=== PATIENT | female | born 1950 | race Caucasian/White ===

== ENCOUNTER 2022-08-25 22:38 | Observation (INO) | payer MEDICARE, SELFPAY ==
[2022-08-25 22:42] VITALS: BP 150/71; PULSE 60; RESP 26; TEMP 36.6; O2SAT 98; BMI 46.3
[2022-08-25 22:45] VITALS: PULSE 61; RESP 25; O2SAT 99
--- NOTE | 2022-08-25 22:50 | DI.RAD.S_ITS ---
PROCEDURE: XR CHEST 1V INDICATIONS: chest pain TECHNIQUE: One view of the chest was acquired. COMPARISON: [facility], CR, XR CHEST 1 VIEW, 07/05/2020, 20:11. FINDINGS: Surgical changes and devices: Left chest wall dual lead pacemaker is demonstrated. Postsurgical changes are also again noted within the mediastinum as well as a prosthetic aortic valve. Lungs and pleura: There is a small right pleural effusion with associated patchy right basilar opacities consistent with atelectasis or consolidation. No pneumothorax. Mediastinum: Mediastinal contours are unchanged. Heart size is enlarged. Bones and chest wall: No suspicious bony lesions. Overlying soft tissues appear unremarkable. IMPRESSION: 1. Small right pleural effusion with associated right basilar atelectasis or consolidation. Dictated by: Bill Redmond M.D. on 08/26/2022 at 1:38 Approved by: Bill Redmond M.D. on 08/26/2022 at 1:39
[2022-08-25 23:00] VITALS: PULSE 60; RESP 27; O2SAT 92
[2022-08-25 23:01] VITALS: BP 123/59; PULSE 60; RESP 26; O2SAT 93
[2022-08-25 23:21] LABS: Add Manual Diff / Slide Review NO; Basophils Absolute Auto 100 /uL (0-100); Basophils Percent Auto 0.9 % (0-2); Eosinophils Absolute Auto 200 /uL (0-450); Eosinophils Percent Auto 2.4 % (2-4); Hematocrit 33.5 % (36-46); Hemoglobin 10.9 g/dL (12.0-16.0); Lymphocytes Absolute Auto 1200 /uL (1100-4500); Lymphocytes Percent Auto 14.1 % (25-40); Mean Corpuscular HGB Conc 32.4 % (30-36); Mean Corpuscular Hemoglobin 25.8 PG (26-34); Mean Corpuscular Volume 79.8 fL (80-100); Monocytes Absolute Auto 1100 /uL (0-900); Monocytes Percent Auto 12.2 % (3-14); Neutrophils Absolute Auto 6200 /uL (1500-7000); Neutrophils Percent Auto 70.4 % (50-75); Platelet Count 160 X10^3/uL (150-400); Red Cell Distribution Width 16.8 % (11.6-14.8); White Blood Cell Count 8.9 X10^3/uL (4.5-11.0)
[2022-08-25 23:30] VITALS: PULSE 60; RESP 15; O2SAT 90
[2022-08-25 23:31] VITALS: BP 109/57; PULSE 60; RESP 17; O2SAT 90
--- NOTE | 2022-08-25 23:33 | ED_ITS ---
HPI - SOB/Dyspnea General Chief Complaint: Shortness of Breath/Dyspnea Stated Complaint: Shortness of breath Time Seen by Provider: 08/25/22 23:23 Source: patient and EMS Mode of arrival: EMS History of Present Illness HPI Narrative: Patient is a 71-year-old female history of congestive heart failure presenting today with increasing shortness of breath. She says has been going on for couple of months her doctor recently increased her Lasix from 20 mg to 40 mg but does not feel like it is helping. She denies fever chills or chest pain. Feels like she is more short of breath. EMS arrived she was placed on 4 L of oxygen her room air sat now is 91%. She states that today she was walking to the bathroom she was extremely short of breath when she fell and hit her head. She denies any loss of conscious. She was previously seen at [facility] on August 16 after a fall. Related Data Allergies Allergy/AdvReac Type Severity Reaction Status Date / Time No Known Drug Allergies Allergy Verified 08/25/22 22:41 Review of Systems Review of Systems Narrative: GENERAL: Denies chills, fatigue, malaise, fever, sweats, travel HEENT: Denies sinus pain, ear pain, sore throat, difficulty swallowing, neck pain RESPIRATORY: See HPI CARDIOVASCULAR: Denies chest pain, palpitations, orthopnea, edema GASTROINTESTINAL: Denies nausea, vomiting, abdominal pain, diarrhea, con stipation, melena. : Denies dysuria, frequency, incontinence, hematuria, urinary retention, flank pain. MUSCULOSKELETAL: Denies weakness, joint pain, or bony pain SKIN: No rash, no erythema, no pruritus NEUROLOGIC: Denies weakness, dizziness, headache, numbness, change in speech, confusion PSYCHIATRIC: No concerning psychosocial issues. 12 point review of systems is negative except for those stated above and HPI Patient History Medical History (Updated 08/26/22 @ 03:38 by DEBI Schmidt) Chronic kidney disease (CKD) stage G3b/A3, moderately decreased glomerular filtration rate (GFR) between 30-44 mL/min/1.73 square meter and albuminuria creatinine ratio greater than 300 mg/g Coronary artery disease Diabetes type 2, controlled Dyslipidemia Essential hypertension Surgical History (Updated 08/26/22 @ 03:38 by DEBI Schmidt) History of heart valve replacement Family History (Updated 08/26/22 @ 03:39 by DEBI Schmidt) Father Leukemia Mother Myocardial infarction Social History household members: other Smoking Status: Former smoker alcohol intake: current Smoking Status: Former smoker alcohol intake frequency: holidays/special occasions only Substance Use Type: does not use Exam Initial Vital Signs Initial Vital Signs: Vital Signs Temperature 97.9 F 08/25/22 22:42 Pulse Rate 60 08/25/22 22:42 Respiratory Rate 26 H 08/25/22 22:42 Blood Pressure 150/71 H 08/25/22 22:42 Pulse Oximetry 98 08/25/22 22:42 Oxygen Delivery Method 08/25/22 22:42 Oxygen Flow Rate 4 08/25/22 22:42 GENERAL: Alert pleasant 71-year-old male HEENT: Head atraumatic,EOMI, pupils reactive, face symmetric, [moist] mucous membranes CARDIOVASCULAR: Regular rate and rhythm without murmurs, rubs or gallops. RESPIRATORY: Slightly tachypneic no respiratory distress slightly coarse at bases ABDOMEN: Soft, nontender. Normoactive bowel sounds all 4 quadrants. No guarding or rebound. EXTREMITIES: Normal range of motion, no clubbing or edema. Neurovascularly intact NEUROLOGICAL: Alert and oriented x4.Normal gait and speech. SKIN: Warm, dry, no laceration, no petechiae, no rashes or lesions. Course Orders Ordered: ED Orders 08/25/22 22:50 XR chest 1V Stat EKG-12 Lead Stat 08/25/22 23:04 Complete Blood Count AUTO DIFF Stat Comprehensive Metabolic Panel Stat Covid-19 + FLU A/B + RSV - PCR Stat Lipase Stat Magnesium Stat NT-proBNP (BNP-Adult 18+) Stat Troponin & CK Cardiac Panel Stat 08/26/22 00:09 ETOH [Ethanol (ETOH)] Stat 08/26/22 00:15 CT head/brain wo con Stat Acetaminophen (Acetaminophen 325 Mg Tablet) 650 mg PO Q6H PRN PRN Reason: Fever/Mild Pain (1-3) Atorvastatin Calcium (Atorvastatin 20 Mg Tablet) 40 mg PO BEDTIME [facility] Citalopram Hydrobromide (Citalopram 10 Mg Tablet) 20 mg PO DAILY [facility] Dextrose (Dextrose 50 % In Water 25 Gm/50 Ml Syringe) 25 gm IV PRN PRN PRN Reason: Hypoglycemia Donepezil HCl (Donepezil 5 Mg Tablet) 5 mg PO BEDTIME [facility] Heparin Sodium (Porcine) (Heparin 5,000 Unit/Ml Vial) 5,000 unit SUBCUT BID [facility] Insulin Human Lispro (Insulin Lispro 100 Unit/Ml 3ml Vial) 0 unit SUBCUT ACHS [facility]; Protocol Losartan Potassium (Losartan 25 Mg Tablet) 25 mg PO DAILY [facility] Metoprolol Succinate (Metoprolol Er 25 Mg Tablet) 50 mg PO DAILY [facility] Naloxone HCl (Naloxone 0.4 Mg/Ml Vial) 0.2 mg IV Q2MIN PRN PRN Reason: Opiate Reversal Ondansetron HCl (Ondansetron 4 Mg/2 Ml Inj) 4 mg IV Q6HR PRN PRN Reason: Nausea And Vomiting Pregabalin (Pregabalin 50 Mg Capsule) 100 mg PO TID [facility] Sennosides (Sennosides 8.6 Mg Tablet) 8.6 mg PO BID [facility] Discontinued Medications Enoxaparin Sodium (Enoxaparin 40 Mg/0.4 Ml Syringe) 40 mg SUBCUT DAILY [facility] Furosemide (Furosemide 40 Mg/4 Ml Vial) 40 mg IV NOW ONE Stop: 08/25/22 23:34 Last Admin: 08/25/22 23:45 Dose: 40 mg Documented By: STEVEN Vital Signs Vital signs: Vital Signs - 8 hr 08/25/22 22:42 08/25/22 22:45 08/25/22 23:00 Temperature 97.9 F Pulse Rate 60 61 60 Respiratory Rate 26 H 25 H 27 H Blood Pressure 150/71 H Pulse Oximetry 98 99 92 Oxygen Delivery Method Nasal Cannula Oxygen Flow Rate 4 08/25/22 23:01 08/25/22 23:01 08/25/22 23:30 Temperature Pulse Rate 60 60 Respiratory Rate 26 H 15 Blood Pressure 123/59 L Pulse Oximetry 93 90 L Oxygen Delivery Method Oxygen Flow Rate 08/25/22 23:31 08/25/22 23:31 08/26/22 00:00 Temperature Pulse Rate 60 61 Respiratory Rate 17 18 Blood Pressure 109/57 L Pulse Oximetry 90 L 96 Oxygen Delivery Method Oxygen Flow Rate 08/26/22 00:01 08/26/22 00:01 08/26/22 00:30 Temperature Pulse Rate 60 64 Respiratory Rate 19 33 H Blood Pressure 123/58 L Pulse Oximetry 96 95 Oxygen Delivery Method Oxygen Flow Rate 2 08/26/22 01:00 11/08/22 01:30 Temperature Pulse Rate 60 60 Respiratory Rate 20 16 Blood Pressure Pulse Oximetry 97 98 Oxygen Delivery Method Oxygen Flow Rate 2 2 MDM - SOB/Dyspnea Lab Data Result diagrams: 08/25/22 23:04 08/25/22 23:04 Labs: Lab Results 08/25/22 08/25/22 08/25/22 Range/Units 23:04 23:04 23:04 WBC 8.9 (4.5-11.0) X10^3/uL RBC 4.20 (4.0-5.2) X10^6/uL Hgb 10.9 L (12.0-16.0) g/dL Hct 33.5 L (36-46) % MCV 79.8 L (80-100) fL MCH 25.8 L (26-34) PG MCHC 32.4 (30-36) % RDW 16.8 H (11.6-14.8) % Plt Count 160 (150-400) X10^3/uL Neut % (Auto) 70.4 (50-75) % Lymph % (Auto) 14.1 L (25-40) % [place] % (Auto) 12.2 (3-14) % Eos % (Auto) 2.4 (2-4) % Baso % (Auto) 0.9 (0-2) % Neut # (Auto) 6200 (7468-6594) /uL Lymph # (Auto) 1200 (4898-3342) /uL [place] # (Auto) 1100 H (0-900) /uL Eos # (Auto) 200 (0-450) /uL Baso # (Auto) 100 (0-100) /uL Sodium 136 L (137-145) mmol/L Potassium 4.4 (3.4-5.1) mmol/L Chloride 103 (98-107) mmol/L Carbon Dioxide 22 (22-32) mmol/L BUN 39 H (7-17) mg/dL Creatinine 1.73 H (0.52-1.04) mg/dL Estimated GFR 31 L (>60) mL/min BUN/Creatinine Ratio 22.5 H (6-22) Glucose 95 (80-110) mg/dL Calcium 7.6 L (8.4-10.2) mg/dL Magnesium 1.6 (1.6-2.3) mg/dL Total Bilirubin 0.5 (0.2-1.3) mg/dL AST 19 (14-36) IU/L ALT 20 (<35) IU/L Alkaline Phosphatase 118 (38-126) U/L Total Creatine Kinase 75 (30-135) U/L CK-MB (CK-2) TNP CK-MB (CK-2) Rel Index TNP Troponin I 0.030 (0.01-0.034) ng/mL NT-Pro-B Natriuret Pep 6740 H (<125) pg/mL Total Protein 6.4 (6.3-8.2) g/dL Albumin 3.7 (3.5-5.0) g/dL Globulin 2.7 (1.7-4.1) g/dL Albumin/Globulin Ratio 1.4 (1.0-2.8) Lipase 295 (23-300) U/L Ethyl Alcohol ( - 10) mg/dL SARS-CoV-2 (PCR) Negative (Negative) Influenza A (RT-PCR) Flu a negative (NEGATIVE) Influenza B (RT-PCR) Flu b negative (NEGATIVE) RSV (PCR) Negative (Negative) 08/25/22 Range/Units 23:04 WBC (4.5-11.0) X10^3/uL RBC (4.0-5.2) X10^6/uL Hgb (12.0-16.0) g/dL Hct (36-46) % MCV (80-100) fL MCH (26-34) PG MCHC (30-36) % RDW (11.6-14.8) % Plt Count (150-400) X10^3/uL Neut % (Auto) (50-75) % Lymph % (Auto) (25-40) % [place] % (Auto) (3-14) % Eos % (Auto) (2-4) % Baso % (Auto) (0-2) % Neut # (Auto) (1805-3233) /uL Lymph # (Auto) (6383-9794) /uL [place] # (Auto) (0-900) /uL Eos # (Auto) (0-450) /uL Baso # (Auto) (0-100) /uL Sodium (137-145) mmol/L Potassium (3.4-5.1) mmol/L Chloride (98-107) mmol/L Carbon Dioxide (22-32) mmol/L BUN (7-17) mg/dL Creatinine (0.52-1.04) mg/dL Estimated GFR (>60) mL/min BUN/Creatinine Ratio (6-22) Glucose (80-110) mg/dL Calcium (8.4-10.2) mg/dL Magnesium (1.6-2.3) mg/dL Total Bilirubin (0.2-1.3) mg/dL AST (14-36) IU/L ALT (<35) IU/L Alkaline Phosphatase (38-126) U/L Total Creatine Kinase (30-135) U/L CK-MB (CK-2) CK-MB (CK-2) Rel Index Troponin I (0.01-0.034) ng/mL NT-Pro-B Natriuret Pep (<125) pg/mL Total Protein (6.3-8.2) g/dL Albumin (3.5-5.0) g/dL Globulin (1.7-4.1) g/dL Albumin/Globulin Ratio (1.0-2.8) Lipase (23-300) U/L Ethyl Alcohol < 10 ( - 10) mg/dL SARS-CoV-2 (PCR) (Negative) Influenza A (RT-PCR) (NEGATIVE) Influenza B (RT-PCR) (NEGATIVE) RSV (PCR) (Negative) Imaging Data Chest x-ray: Radiologist's Impression: PROCEDURE:? XR CHEST 1V ? INDICATIONS:? chest pain ? TECHNIQUE:? One view of the chest was acquired.? ? COMPARISON:? [facility], , XR CHEST 1 VIEW, 07/05/2020, 20:11. ? FINDINGS:? ? Surgical changes and devices:? Left chest wall dual lead pacemaker is demonstrated.? Postsurgical changes are also again noted within the mediastinum as well as a prosthetic aortic valve. ? Lungs and pleura:? There is a small right pleural effusion with associated patchy right basilar opacities consistent with atelectasis or consolidation.? No pneumothorax. ? Mediastinum:? Mediastinal contours are unchanged.? Heart size is enlarged. ? Bones and chest wall:? No suspicious bony lesions.? Overlying soft tissues appear unremarkable.? ? IMPRESSION:? ? 1. Small right pleural effusion with associated right basilar atelectasis or consolidation.? ? ? Dictated by: Bill Redmond M.D. on 08/26/2022 at 1:38 ? ? Approved by: Bill Redmond M.D. on 08/26/2022 at 1:39 ? CT scan - head: Radiologist's Impression: Signed Patient: Penny Minor MR#: [id number] : 1950 Acct:[id number] Age/Sex: 71 / F Date of Service: 08/26/22 Loc: ED Accession Number: [id number] ?? Procedure: CT head/brain wo con Ordering Provider: Shawna Quinonez D.O. PROCEDURE:? CT HEAD/BRAIN WO CON ? INDICATIONS:? fall etoh ? TECHNIQUE:? Noncontrast 4.5 mm thick angled axial sections acquired from the foramen magnum to the vertex, with coronal and sagittal reformats.? For radiation dose reduction, the following was used:? automated exposure control, adjustment of mA and/or kV according to patient size.? ? COMPARISON:? None. ? FINDINGS:? Image quality:? There is mild motion artifact.? ? CSF spaces:? Basal cisterns are patent.? No extra-axial fluid collections.? There is mild cerebral volume loss, with resultant ventricular and sulcal prominence.? ? Brain:? No intracranial hemorrhage, mass, or mass effect.? There are subcortical, periventricular and deep white matter hypodensities consistent with mild to moderate chronic small vessel ischemic changes.? The spencer-white matter junction appears preserved. ?There is intracranial internal carotid artery atherosclerosis.? ? Skull and face:? Calvarium and visualized facial bones appear intact, without suspicious lesions.? ? Sinuses:? Visualized sinuses and mastoids are clear.? ? IMPRESSION:? ? 1. No acute intracranial abnormality. ? 2. Mild to moderate chronic white matter small vessel ischemic changes and mild cerebral volume loss. ? ? Dictated by: Bill Redmond M.D. on 08/26/2022 at 1:28 ? ? Approved by: Bill Redmond M.D. on 08/26/2022 at 1:29 ? ECG Data Interpretation: Paced rhythm rate [address] changes low voltage no priors to compare MDM Narrative Medical decision making narrative: Patient has history of congestive heart failure on Lasix her dose was increased from 20-40 she is not sure when. She continues to be tachypneic short of breath. She does require 1-2 L of oxygen in the ED. Her BNP is elevated at 6000 his symptoms are consistent with congestive heart failure no sign of infection at this time. Coronary artery disease pulmonary embolism are also considered but at this time symptoms are most consistent with congestive heart failure exacerbation. Although she appears comfortable she was given 40 of Lasix in the ED she did urinate with Records from would be have been received and reviewed he fell on August 16 and then she fell again today head CT is negative. Kely Carballo accepts patient Discharge Plan Departure Patient Disposition: Admitted as Observation Clinical Impression: Congestive heart failure Admit Date/Time: 08/26/22 01:51 Admit Provider: Jing Carballo
[2022-08-25 23:35] LABS: Alanine Aminotransferase 20 IU/L (<35); Albumin 3.7 g/dL (3.5-5.0); Albumin Globulin Ratio 1.4 (1.0-2.8); Alkaline Phosphatase 118 U/L (38-126); Aspartate Aminotransferase 19 IU/L (14-36); BUN Creatinine Ratio 22.5 (6-22); Bilirubin Total 0.5 mg/dL (0.2-1.3); Blood Urea Nitrogen 39 mg/dL (7-17); Calcium 7.6 mg/dL (8.4-10.2); Carbon Dioxide 22 mmol/L (22-32); Chloride 103 mmol/L (98-107); Creatine Kinase 75 U/L (30-135); Estimated Glomerular Filt Rate 31 mL/min (>60); Globulin 2.7 g/dL (1.7-4.1); Glucose 95 mg/dL (80-110); HEMOLYSIS < 15 (0-50); Lipase 295 U/L (23-300); Magnesium 1.6 mg/dL (1.6-2.3); Potassium 4.4 mmol/L (3.4-5.1); Sodium 136 mmol/L (137-145); Total Protein 6.4 g/dL (6.3-8.2)
[2022-08-25] MEDS: FUROSEMIDE 40 MG/4 ML VIAL IV (23:45)
[2022-08-25 23:46] LABS: NT-proBNP (BNP-Adult 18+) 6740 pg/mL (<125)
[2022-08-26] VITALS (16 sets, daily range): BP systolic 102–132; BP diastolic 48–75; PULSE 59–94; RESP 13–33; TEMP 36.2–36.5; O2SAT 92–100; BMI 45.2
--- NOTE | 2022-08-26 00:15 | DI.CT.S_ITS ---
PROCEDURE: CT HEAD/BRAIN WO CON INDICATIONS: fall etoh TECHNIQUE: Noncontrast 4.5 mm thick angled axial sections acquired from the foramen magnum to the vertex, with coronal and sagittal reformats. For radiation dose reduction, the following was used: automated exposure control, adjustment of mA and/or kV according to patient size. COMPARISON: None. FINDINGS: Image quality: There is mild motion artifact. CSF spaces: Basal cisterns are patent. No extra-axial fluid collections. There is mild cerebral volume loss, with resultant ventricular and sulcal prominence. Brain: No intracranial hemorrhage, mass, or mass effect. There are subcortical, periventricular and deep white matter hypodensities consistent with mild to moderate chronic small vessel ischemic changes. The spencer-white matter junction appears preserved. There is intracranial internal carotid artery atherosclerosis. Skull and face: Calvarium and visualized facial bones appear intact, without suspicious lesions. Sinuses: Visualized sinuses and mastoids are clear. IMPRESSION: 1. No acute intracranial abnormality. 2. Mild to moderate chronic white matter small vessel ischemic changes and mild cerebral volume loss. Dictated by: Bill Redmond M.D. on 08/26/2022 at 1:28 Approved by: Bill Redmond M.D. on 08/26/2022 at 1:29
[2022-08-26 00:24] LABS: Ethanol (ETOH) < 10 mg/dL
[2022-08-26 00:33] LABS: Influenza A - CEPHEID Flu A NEGATIVE (NEGATIVE); Influenza B - CEPHEID Flu B NEGATIVE (NEGATIVE); Respiratory Syncytial Virus Negative (Negative)
[2022-08-26 00:36] LABS: COVID-19 CEPHEID 4-PLEX PCR Negative (Negative)
--- NOTE | 2022-08-26 02:04 | DI.ECHO.S_ITS ---
[facility] +---------+ : : [address] [place] : : : : [id number] : : : : Phone: [phone] Echocardiogram Report + + :Name: MEHREEN JONES Study Date: 08/26/2022 Height: 64 in : :[facility] ReadingLocation: Weight: 270 lb : : Gender: Female BSA: 2.2 m2 : :: 1950 Age: 71 yrs BP: 112/61 mmHg: :Reason For Study: CHF EXACERBATION : :Ordering Physician: Reggie YADAVformed By: Martha Staton : :Referring: RUBY YADAV : + + Interpretation Summary The left ventricle is normal in size. Left ventricular systolic function is borderline reduced. Left ventricular ejection fraction is estimated to be 50 +/- 5%. Left ventricular systolic function has significantly improved compared to the previous exam. The interventricular septum is flattened, consistent with a right ventricular pressure/volume condition. The right ventricle is moderately dilated. Right ventricular systolic function is moderately reduced. The right ventricular systolic pressure is estimated to be at least 59 mmHg based on an estimated right atrial pressure of 8 mm Hg. The left atrium is moderately dilated. The right atrium is mildly dilated. There is moderate to severe mitral annular calcification. There is mild to moderate mitral regurgitation. There is moderate tricuspid regurgitation. There is moderate pulmonic regurgitation. The aortic arch is moderate-severely enlarged. Procedure: A two-dimensional transthoracic echocardiogram with color flow and Doppler was performed. The study quality was technically adequate. Comparison is made with the echocardiogram of 07/06/2020. The patient had occasional PVCs during the exam. The patient was in sinus rhythm with heart rates between 60-65 bpm during the exam. Left Ventricle: The left ventricle is normal in size. There is mild concentric left ventricular hypertrophy. Left ventricular systolic function is borderline reduced. Left ventricular ejection fraction is estimated to be 50 +/- 5%. Left ventricular systolic function has significantly improved compared to the previous exam. The interventricular septum is flattened, consistent with a right ventricular pressure/volume condition. There is borderline global hypokinesis of the left ventricle. Diastolic parameters suggest probable elevated filling pressures. Right Ventricle: The right ventricle is moderately dilated. Right ventricular systolic function is moderately reduced. Atria: The left atrium is moderately dilated. The right atrium is mildly dilated. There is no Doppler evidence for an interatrial shunt. Mitral Valve: There is moderate to severe mitral annular calcification. The mitral valve leaflets appear mildly thickened, but open well. The mitral valve mean gradient is 3.2 mmHg. There is mild to moderate mitral regurgitation. Aortic Valve: The aortic valve is trileaflet. The aortic valve is mildly calcified. There is mild aortic valve sclerosis. There is no aortic valve stenosis. No aortic regurgitation is present. Tricuspid Valve: The tricuspid valve leaflets are thin and pliable. There is moderate tricuspid regurgitation. The right ventricular systolic pressure is estimated to be at least 59 mmHg based on an estimated right atrial pressure of 8 mm Hg. Pulmonic Valve: The pulmonic valve is not well seen, but is grossly normal. There is moderate pulmonic regurgitation. Great Vessels: The aortic root is normal size. The dimensions of the ascending aorta are normal. The aortic arch is moderate-severely enlarged. The IVC is dilated (diameter is greater than 2.1 cm) yet it collapses greater than 50% with a sniff. This suggests a right atrial pressure of 8 mm Hg. Pericardium/ Pleura There is no pericardial effusion. There is no pleural effusion. MMode/2D Measurements & Calculations LVIDd: 4.6 cm LVOT diam: 2.0 cm LVIDs: 3.3 cm Ao root diam: 2.7 cm FS: 28.6 % asc Aorta Diam: 3.4 cm IVSd: 1.3 cm Ao Arch Diam (Prox Trans): 4.3 cm LVPWd: 1.1 cm LV christianson. diameter/BSA (cm/m^2): 2.1 LV sys. diameter/BSA (cm/m^2): 1.5 LA A2 area: 31.8 cm2 RA long axis: 6.1 cm LA A4 area: 22.2 cm2 RA area: 23.3 cm2 LA length (vol): 6.4 cm RA vol: 75.8 ml LA vol: 94.2 ml RA : 34.1 ml/m2 LA vol index: 42.4 ml/m2 IVC diam: 2.3 cm RVD1 (basal): 5.4 cm RVD2 (mid): 4.5 cm TAPSE: 1.3 cm Doppler Measurements & Calculations Ao V2 max: 168.7 cm/sec LVOT Max Thaddeus: 106.9 cm/sec Ao V2 mean: 114.8 cm/sec LV V1 max P.6 mmHg Ao max P.3 mmHg LV V1 VTI: 19.8 cm Ao mean P.5 mmHg LEANN(I,D): 1.9 cm2 Ao V2 VTI: 33.0 cm LEANN(V,D): 2.0 cm2 sev ratio: 0.60 LEANN indexed to BSA (cm^2/m^2): 0.85 MV E max thaddeus: 161.2 cm/sec TR max thaddeus: 356.5 cm/sec MV A max thaddeus: 44.1 cm/sec TR max P.9 mmHg MV E/A: 3.7 PA V2 max: 127.0 cm/sec Med Peak E' Thaddeus: 5.4 cm/sec PA V2 mean: 80.8 cm/sec E/E' med: 29.6 PA mean P.0 mmHg Lat Peak E' Thaddeus: 7.7 cm/sec PA pr(Accel): 29.3 mmHg E/E' lat: 20.8 E/e' average: 25.2 MV dec time: 0.19 sec MVA(VTI): 1.5 cm2 MV V2 mean: 76.8 cm/sec SV(LVOT): 62.7 ml MV mean P.2 mmHg MV V2 VTI: 41.8 cm Reading Physician:02:34 PM
--- NOTE | 2022-08-26 03:04 | P.HP_ITS ---
History of Present Illness History of Present Illness Date Patient Seen: 08/26/22 Time Patient Seen: 03:30 Date of Onset of Symptoms: 08/26/22 Chief complaint: Shortness of breath Narrative: Penny Minor is a 71-year-old female resident of [facility] with a history of congestive heart failure, coronary artery disease, and diabetes presented today with increased shortness of breath.? She says has been going on for couple of months her doctor recently increased her Lasix from 20 mg to 40 mg but does not feel like it is helping.? She denies fever chills or chest pain.? Feels like she is more short of breath.? EMS arrived she was placed on 4 L of oxygen, her room air sat now is 91%.? She states that today she was walking to the bathroom she was extremely short of breath when she fell and hit her head.??She apparently did not have dinner she was feeling poorly and slept through dinner. At 3:00 a.m. she is in her room eating a sandwich. She does not believe that they limit her salt intake where she lives but she does not add salt to her meals. She is not seen by a provider in the facility, her daughter takes her to her doctor appointments and she believes she last saw Maryjane her primary care provider a month ago. She does endorse having frequent urination which is not new denies any nausea vomiting diarrhea or constipation. She is afebrile, blood pressure 112/61, heart rate 60 respiratory rate 13 oxygen saturation 98% on 2 L she weighs 100 and 20 kg with a BMI of 45. Head CT and chest x-ray are negative for any acute cardiopulmonary or neurological process. She is mildly anemic with a hemoglobin and hematocrit of 10.9 and 33.5, sodium is 136, creatinine 1.73 with a EGFR of 31 BUN is 39, calcium 7.6, her proBNP is 6740 influenza A/B, RSV and COVID PCR are all negative Patient History Medical History (Updated 08/26/22 @ 03:38 by DEBI Schmidt) Chronic kidney disease (CKD) stage G3b/A3, moderately decreased glomerular filtration rate (GFR) between 30-44 mL/min/1.73 square meter and albuminuria creatinine ratio greater than 300 mg/g Coronary artery disease Diabetes type 2, controlled Dyslipidemia Essential hypertension Surgical History (Updated 08/26/22 @ 03:38 by DEBI Schmidt) History of heart valve replacement Family & Social History Family History (Updated 08/26/22 @ 03:39 by DEBI Schmidt) Father Leukemia Mother Myocardial infarction Social History: 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 Safety & Behavioral: Feels Safe in Current Yes Environment Tobacco & Substance use: Smoking Status Former smoker alcohol intake frequency intermittent hard liquor drinker states she ?gets drunk? once a month Substance Use Type does not use Meds Home Medications and Allergies Allergies Allergy/AdvReac Type Severity Reaction Status Date / Time No Known Drug Allergies Allergy Verified 08/25/22 22:41 Review of Systems Review of Systems ROS: Yes All systems reviewed with the patient and are negative except as otherwise documented Exam Vital Signs (past 8 hours): - 08/25/22 22:42 08/25/22 22:45 08/25/22 23:00 Temperature 97.9 F Pulse Rate 60 61 60 Respiratory Rate 26 H 25 H 27 H Blood Pressure 150/71 H Pulse Oximetry 98 99 92 Oxygen Delivery Method Nasal Cannula Oxygen Flow Rate 4 08/25/22 23:01 08/25/22 23:01 08/25/22 23:30 Temperature Pulse Rate 60 60 Respiratory Rate 26 H 15 Blood Pressure 123/59 L Pulse Oximetry 93 90 L Oxygen Delivery Method Oxygen Flow Rate 08/25/22 23:31 08/25/22 23:31 08/26/22 00:00 Temperature Pulse Rate 60 61 Respiratory Rate 17 18 Blood Pressure 109/57 L Pulse Oximetry 90 L 96 Oxygen Delivery Method Oxygen Flow Rate 08/26/22 00:01 08/26/22 00:01 08/26/22 00:30 Temperature Pulse Rate 60 64 Respiratory Rate 19 33 H Blood Pressure 123/58 L Pulse Oximetry 96 95 Oxygen Delivery Method Oxygen Flow Rate 2 08/26/22 01:00 08/26/22 01:30 08/26/22 02:00 Temperature Pulse Rate 60 60 60 Respiratory Rate 20 16 15 Blood Pressure Pulse Oximetry 97 98 97 Oxygen Delivery Method Oxygen Flow Rate 2 2 2 08/26/22 02:30 Temperature Pulse Rate 60 Respiratory Rate 13 Blood Pressure Pulse Oximetry 98 Oxygen Delivery Method Oxygen Flow Rate Oxygen Delivery Method Nasal Cannula Oxygen Flow Rate 2 Narrative Exam Narrative: Gen: Alert, oriented, morbidly obese 71 y.o. female, NAD HEENT: normocephalic, atraumatic, conjunctiva clear, sclera non-icteric, oral mucosa pink and moist, poor dentition is missing some teeth Neck: supple, full ROM, no JVD, trachea is midline Resp: Lungs CTA, non-labored breathing CV: RRR, no murmur or rubs Abd: soft, non-tender, normoactive BTs Skin: Multiple skin tears on her arms appearing to emanate from falls, no lesions or rashes, dry and intact Neuro: Alert and oriented X 4 w/no focal deficits. Speech clear and coherent. She does appear to have some very mild memory impairment. Extremities: Bilateral +2 to 3 pitting edema, moves all 4 extremities, is ambulatory, negative Cceilia?s sign Psyche: Very pleasant, normal mood and affect. Objective Labs Result Diagrams: 08/25/22 23:04 08/25/22 23:04 Labs: Laboratory Results - last 24 hr 08/25/22 08/25/22 08/25/22 23:04 23:04 23:04 WBC 8.9 RBC 4.20 Hgb 10.9 L Hct 33.5 L MCV 79.8 L MCH 25.8 L MCHC 32.4 RDW 16.8 H Plt Count 160 Neut % (Auto) 70.4 Lymph % (Auto) 14.1 L Jessamine % (Auto) 12.2 Eos % (Auto) 2.4 Baso % (Auto) 0.9 Neut # (Auto) 6200 Lymph # (Auto) 1200 Jessamine # (Auto) 1100 H Eos # (Auto) 200 Baso # (Auto) 100 Sodium 136 L Potassium 4.4 Chloride 103 Carbon Dioxide 22 BUN 39 H Creatinine 1.73 H Estimated GFR 31 L BUN/Creatinine Ratio 22.5 H Glucose 95 Calcium 7.6 L Magnesium 1.6 Total Bilirubin 0.5 AST 19 ALT 20 Alkaline Phosphatase 118 Total Creatine Kinase 75 CK-MB (CK-2) TNP CK-MB (CK-2) Rel Index TNP Troponin I 0.030 NT-Pro-B Natriuret Pep 6740 H Total Protein 6.4 Albumin 3.7 Globulin 2.7 Albumin/Globulin Ratio 1.4 Lipase 295 Ethyl Alcohol SARS-CoV-2 (PCR) Negative Influenza A (RT-PCR) Flu a negative Influenza B (RT-PCR) Flu b negative RSV (PCR) Negative 08/25/22 23:04 WBC RBC Hgb Hct MCV MCH MCHC RDW Plt Count Neut % (Auto) Lymph % (Auto) Jessamine % (Auto) Eos % (Auto) Baso % (Auto) Neut # (Auto) Lymph # (Auto) Jessamine # (Auto) Eos # (Auto) Baso # (Auto) Sodium Potassium Chloride Carbon Dioxide BUN Creatinine Estimated GFR BUN/Creatinine Ratio Glucose Calcium Magnesium Total Bilirubin AST ALT Alkaline Phosphatase Total Creatine Kinase CK-MB (CK-2) CK-MB (CK-2) Rel Index Troponin I NT-Pro-B Natriuret Pep Total Protein Albumin Globulin Albumin/Globulin Ratio Lipase Ethyl Alcohol < 10 SARS-CoV-2 (PCR) Influenza A (RT-PCR) Influenza B (RT-PCR) RSV (PCR) Assessment & Plan Assessment & Plan narrative: Penny Minor will be placed into observation for further evaluation of congestive heart failure exacerbation. She will be diuresed and given supplemental oxygen support. CHF exacerbation, acute, present on admission * Chads 2 Vasc score is 6 indicating a 9.7% risk of stroke per year * Complete echo in the morning * Patient does take a ARB and beta-luisa consisting of losartan 25 mg daily and metoprolol extended release 50 mg and this will be continued * Supplemental O2 as needed for shortness of breath * She received Lasix 40 mg in the ED and put out quite a bit of urine however I will hold this and defer to the day team due to concerns of increased renal impairment. * Telemetry Essential hypertension, chronic * Blood pressure appears to be well controlled Coronary artery disease, chronic * Continue home dose of atorvastatin 40 mg daily * Fasting lipid panel will need to be done on 08/27 S the patient had a sandwich at 3:00 a.m.. Diabetes type 2, chronic * She is on a low-dose insulin correctional scale and A1c is pending Diabetic polyneuropathy, chronic * Continue pregabalin 150 mg p.o. at bedtime Presumed mild dementia * Continue home dose of benazepril 5 mg at bedtime and citalopram 20 mg daily VTE Prophylaxis: Wells risk score 0 X subQ heparin 5000 units twice daily Bilateral SCDs Patient is placed into observation as her stay is not expected to exceed 2 midnights. FEN: IV fluids: saline lock, diet: Carb controlled diet, labs: CBC, C/BMP, liver enzymes, Mag, PT/INR Consultants None Dispo: Probable returned to assisted living facility in a day or 2 Code status: POLST states she is a DNR/DNI with limited interventions, daughter is her DPOA. [X] I have utilized all available immediate resources to obtain, update, or review of the patient's current medications VTE Deep Vein Thrombosis/Pulmonary Embolism Present on Admission: No MIPS - Admit I confirm the patient?s Advance Care Plan is present, Code status is documented, Surrogate decision maker is in patient?s record: Yes MIPS - DC The patient has current or prior documentation of left ventricular ejection fraction (LVEF) less than 40%, or moderate or severely depressed left ventricular systolic function.: No COVID-19 COVID-19 status: Negative Result date/Date tested (Pos, Neg/Pending): 08/26/22 Time Spent With Patient Critical Care time: I spent a total of [] minutes of critical care time on this patient's care today; this time is exclusive of procedural time. Scores CHADS-VASc Congestive heart failure: yes Hypertension: yes Age 75 years or older: no Diabetes mellitus: yes Stroke, TIA, or TE: no Vascular disease: yes Age 65 to 74 years: yes Sex category (female): Female CHADS-VASc Score: 6 Quality MIPS - DC A. The patient was prescribed or already taking an Angiotensin-Converting Enzyme (MING) Inhibitor, or Angiotensin Receptor Luisa (ARB).: Yes B. The patient was prescribed or already taking a beta-luisa. [If Yes to Both A & B, STOP here]: Yes
[2022-08-26 05:17] LABS: Hemoglobin A1C% w Est Avg Glu 7.4 % (4.0-6.0)
[2022-08-26 06:43] LABS: Add Manual Diff / Slide Review NO; Basophils Absolute Auto 100 /uL (0-100); Basophils Percent Auto 0.8 % (0-2); Eosinophils Absolute Auto 200 /uL (0-450); Eosinophils Percent Auto 2.6 % (2-4); Hematocrit 33.3 % (36-46); Hemoglobin 10.7 g/dL (12.0-16.0); Lymphocytes Absolute Auto 1000 /uL (1100-4500); Lymphocytes Percent Auto 13.8 % (25-40); Mean Corpuscular HGB Conc 32.2 % (30-36); Mean Corpuscular Hemoglobin 25.9 PG (26-34); Mean Corpuscular Volume 80.3 fL (80-100); Monocytes Absolute Auto 1100 /uL (0-900); Monocytes Percent Auto 14.4 % (3-14); Neutrophils Absolute Auto 5200 /uL (1500-7000); Neutrophils Percent Auto 68.4 % (50-75); Platelet Count 152 X10^3/uL (150-400); Red Blood Cell Count 4.15 X10^6/uL (4.0-5.2); Red Cell Distribution Width 16.7 % (11.6-14.8); White Blood Cell Count 7.6 X10^3/uL (4.5-11.0)
[2022-08-26 06:50] LABS: Alanine Aminotransferase 18 IU/L (<35); Albumin 3.5 g/dL (3.5-5.0); Albumin Globulin Ratio 1.3 (1.0-2.8); Alkaline Phosphatase 110 U/L (38-126); Aspartate Aminotransferase 18 IU/L (14-36); Bilirubin Total 0.6 mg/dL (0.2-1.3); Blood Urea Nitrogen 40 mg/dL (7-17); Calcium 7.8 mg/dL (8.4-10.2); Carbon Dioxide 27 mmol/L (22-32); Chloride 102 mmol/L (98-107); Estimated Glomerular Filt Rate 33 mL/min (>60); Globulin 2.6 g/dL (1.7-4.1); Glucose 127 mg/dL (80-110); HEMOLYSIS < 15 (0-50); Magnesium 1.6 mg/dL (1.6-2.3); Potassium 3.9 mmol/L (3.4-5.1); Sodium 137 mmol/L (137-145); Total Protein 6.1 g/dL (6.3-8.2)
[2022-08-26 07:00] LABS: Troponin I 0.025 ng/mL (0.01-0.034)
[2022-08-26] MEDS: CITALOPRAM 10 MG TABLET 20 MG PO (09:25)
[2022-08-26] MEDS: HEPARIN 5,000 UNIT/ML VIAL 5000 UNIT SUBCUT (09:25)
[2022-08-26] MEDS: PREGABALIN 50 MG CAPSULE 100 MG PO ×3 (09:26→23:05)
[2022-08-26] MEDS: METOPROLOL ER 25 MG TABLET 50 MG PO (09:26)
[2022-08-26] MEDS: SENNOSIDES 8.6 MG TABLET PO ×2 (09:26→23:05)
[2022-08-26] MEDS: LOSARTAN 25 MG TABLET PO (09:45)
[2022-08-26] MEDS: FUROSEMIDE 40 MG/4 ML VIAL IV ×2 (09:47→23:05)
--- NOTE | 2022-08-26 11:01 | PC.NURSE ---
Pt alert and oriented, offers no overt c/o pain or other issues. Calm and cooperative.
[2022-08-26] MEDS: MAGNESIUM CHLORIDE 64 MG TABLET 128 MG PO (12:15)
[2022-08-26] MEDS: HEPARIN 5,000 UNIT/ML VIAL 7500 UNIT SUBCUT ×2 (15:29→23:05)
[2022-08-26] MEDS: DONEPEZIL 5 MG TABLET PO (23:05)
[2022-08-26] MEDS: ATORVASTATIN 20 MG TABLET 40 MG PO (23:05)
[2022-08-27 00:18] VITALS: BP 119/65; PULSE 60; RESP 18; TEMP 36.6; O2SAT 97
[2022-08-27] MEDS: MELATONIN 3 MG TABLET 9 MG PO (01:59)
[2022-08-27 03:28] VITALS: BP 128/69; PULSE 64; RESP 18; TEMP 36.5; O2SAT 95
--- NOTE | 2022-08-27 05:21 | PC.NURSE ---
This LOCK AND DAM EQUIPMENT REPAIRER heard the bed alarm going off and went in to check it out, Pt was in bathroom with walker getting off the toilet. Then she began to walk to the bed without walker but this LOCK AND DAM EQUIPMENT REPAIRER reminder her to use it. She got into bed and said no body came when I called. She said she pressed the red button on her side rail, but not the call light button. I explained how to correctly call, and reported to RN.
[2022-08-27] MEDS: HEPARIN 5,000 UNIT/ML VIAL 7500 UNIT SUBCUT (06:17)
[2022-08-27 06:41] LABS: Alanine Aminotransferase 18 IU/L (<35); Albumin 3.6 g/dL (3.5-5.0); Albumin Globulin Ratio 1.3 (1.0-2.8); Alkaline Phosphatase 99 U/L (38-126); Aspartate Aminotransferase 17 IU/L (14-36); Bilirubin Total 0.9 mg/dL (0.2-1.3); Blood Urea Nitrogen 43 mg/dL (7-17); Calcium 8.4 mg/dL (8.4-10.2); Carbon Dioxide 26 mmol/L (22-32); Chloride 102 mmol/L (98-107); Estimated Glomerular Filt Rate 35 mL/min (>60); Globulin 2.8 g/dL (1.7-4.1); Glucose 115 mg/dL (80-110); HEMOLYSIS < 15 (0-50); Magnesium 1.7 mg/dL (1.6-2.3); Potassium 4.2 mmol/L (3.4-5.1); Sodium 136 mmol/L (137-145); Total Protein 6.4 g/dL (6.3-8.2)
[2022-08-27] MEDS: PREGABALIN 50 MG CAPSULE 100 MG PO (08:57)
[2022-08-27 08:58] VITALS: BP 112/53
[2022-08-27] MEDS: METOPROLOL ER 25 MG TABLET 50 MG PO (08:58)
[2022-08-27] MEDS: SENNOSIDES 8.6 MG TABLET PO (08:58)
[2022-08-27] MEDS: CITALOPRAM 10 MG TABLET 20 MG PO (08:58)
[2022-08-27] MEDS: FUROSEMIDE 40 MG/4 ML VIAL IV (09:00)
[2022-08-27 09:05] VITALS: BP 112/53
[2022-08-27] MEDS: LOSARTAN 25 MG TABLET PO (09:05)
[2022-08-27 09:15] VITALS: BP 112/83; PULSE 60; RESP 24; TEMP 36.5; O2SAT 93
--- NOTE | 2022-08-27 11:10 | PT.IIE ---
Surgical History (Last Updated 08/26/22 @ 03:38 by DEBI Schmidt) History of heart valve replacement Medical History (Last Updated 08/26/22 @ 03:38 by DEBI Schmidt) Chronic kidney disease (CKD) stage G3b/A3, moderately decreased glomerular filtration rate (GFR) between 30-44 mL/min/1.73 square meter and albuminuria creatinine ratio greater than 300 mg/g Coronary artery disease Diabetes type 2, controlled Dyslipidemia Essential hypertension Physical Therapy Inpatient Evaluation/Re-Eval M1 PT/OT-IP Prior Functional Status Start: 08/27/22 12:05 Freq: NEEDED Status: Active Protocol: Document 08/27/22 11:10 AB (Rec: 08/27/22 12:17 AB [id number]) Medical Review Prior Functional Status Medical History Reviewed Yes Communication able to make needs known Mobility and Gait pt stated that she is modified independent with all mobilities and ambultion using a 4WW but occasionally without AD with ambulation inside her room/apartment Social History Household Members other Living Arrangements Assisted Living Number of Stairs To Enter/Railing? pt lives at [facility] Environment High Toilet,Walk in Shower, Built-In Shower Seat Home Equipment Front Wheel Walker,Four Wheel Walker,Manual Wheelchair,Hand Held Shower,Long Handled Sponge,Grab Bars Near Toilet, Grab Bars In Shower Additional Social History Comment pt has an adjustable bed M2 PT-IP Current Condition Start: 08/27/22 12:05 Freq: NEEDED Status: Active Protocol: Document 08/27/22 11:10 AB (Rec: 08/27/22 12:17 AB [id number]) Physical Therapy Current Condition Current Condition Evaluation Date 08/27/22 Treatment Diagnosis CHF; difficulty in walking Onset Date 08/26/22 M3 PT-IP Subjective Start: 08/27/22 12:05 Freq: NEEDED Status: Active Protocol: Document 08/27/22 11:10 AB (Rec: 08/27/22 12:17 AB [id number]) Subjective Physical Therapy Visit Type Type Initial Evaluation Visit Start Time 11:10 Visit Stop Time 11:40 Total Visit Minutes 30 Number of FITNESS WORKER Visits 0 Physical Therapy Visit Comments Patient Comments agreeable to do PT M4 PT-IP Mobility and Gait Start: 08/27/22 12:05 Freq: NEEDED Status: Active Protocol: Document 08/27/22 11:10 AB (Rec: 08/27/22 12:17 AB [id number]) PT-Bed Mobility Assessment Supine to Sit Supine to Sit Standby Assistance Sit to Supine Sit to Supine Standby Assistance PT-Transfer Assessment Sit to and From Stand Sit to and from Stand Standby Assistance Equipment Transfer Assistive Device Gait Belt,Front Wheeled Walker Orthotic/Prosthetic Devices or Brace: No Transfers Transfer Destination Bed Transfer Technique ambulated Transfer Ability Level of Assist Standby Assistance Comments Mobility Comments pt sitting on w/c and awaiting d/c. agreed to do PT. O2 sat at RA 95%. completed sit to stand SBA and ambulated to the bed ~ 10 ft using FWW SBA and completed bed mobility sit <>supine SBA. ambulated again using FWW ~ 12 ft SBA. educated pt on pacing and deep breathing in betwen tasks. O2 sat checked afte ambulation : 95%. pt initially stated that she uses a fWW at home but then stated that she uses a 4WW but has a FWW as well. assessed ambulation using 4WW and completed ~ 100 ft SBA. pt ambulated back to w/c. pt's daughter in room with pt. pt and daughter without further concerns. informed porter sample case regarding pt's mobility and to inform [facility] per daughter's request. Gait Assessment Gait Gait Assistance Required: Standby Assistance Distance (Feet) 100 Able to Maintain Weight Bearing Status Yes During Gait Assistive Devices Assistive Device Gait Belt,Front Wheeled Walker ,4 Wheeled Walker Orthotic/Prosthetic Devices or Brace: No Gait Deviations General Gait Pattern Decreased Stride Length Factors Limiting Gait Function Factors Limiting Gait Function Decreased Activity Tolerance, Decreased Strength,Poor Balance,Poor Safety Awareness, Respiratory Distress PT-Balance Assessment Sitting Balance and Reactions Static Sitting Balance Ability Normal Dynamic Sitting Balance Ability Normal Standing Balance and Reactions Static Standing Balance Ability Good Dynamic Standing Balance Ability Fair Device Used FWW/4WW M5 PT-IP Objective Assessments Start: 08/27/22 12:05 Freq: NEEDED Status: Active Protocol: Document 08/27/22 11:10 AB (Rec: 08/27/22 12:17 AB [id number]) Orientation Orientation/Cognition Level of Alertness Alert Orientation Name,Place,Situation Language Function Ability No Deficits Noted Safety Awareness Decreased Safety Awareness Memory Description Short Term Impaired Gross Range of Motion Lower Extremity ROM Assessment Within Functional Limits Strength Comments Strength Comments LLE: 4/5 RLE: 4-/5 Sensation Assessment Sensation Gross Sensation WNL Muscle Tone Muscle Tone WNL Yes M6 PT-IP Treatment Start: 08/27/22 12:05 Freq: NEEDED Status: Active Protocol: Document 08/27/22 11:10 AB (Rec: 08/27/22 12:17 AB [id number]) Physical Therapy Treatment Education Education Provided Safety M7 PT-IP Assessment and Plan Start: 08/27/22 12:05 Freq: NEEDED Status: Active Protocol: Document 08/27/22 11:10 AB (Rec: 08/27/22 12:17 AB [id number]) PT Summary Assessment and Plan Potential Rehabilitation Potential Good Status of Condition at Evaluation Stable Summary Impairments Pain,ROM,Strength,Balance, Coordination,Sensation,Tone, Cognition,Bed Mobility, Transfers,Gait,Activity Tolerance Assessment Summary pt requiring SBA with mobility using FWW/4WW. pt may go back to [facility]. Goals Bed Mobility Goal Independent Transfer Goal Independent,Four Wheeled Walker Gait Goal Independent,Four Wheel Walker Gait Distance 200 Days to Meet Goals 3 Frequency of Treatment Frequency Of Treatment Once a Day Treatment Plan Physical Therapy Treatment Plan Bed Mobility Training,Transfer Training,Gait Training, Therapeutic Exercise,Balance Retraining,Discharge Planning, Hot or Cold Pack,Neuromuscular Re-ed,Coordination Retraining Recommendations To Nursing Amount of Assist Needed Standby Assistance Discharge Recommendations PT Discharge Recommendations Home Transportation Needs at Discharge Private Vehicle
--- NOTE | 2022-08-27 12:13 | PC.NURSE ---
Pt is dressed and ready for discharge back to [facility] with Daughter. Pt has been cleared by PT. Discussed d/c meds, time of last dose, reviewed stroke education, CHF guidelines sheet, reminded Pt to get up slowly from bed or chair and to rest when she starts to become short of breath. Spoke with Pt's PCP and gave her an update. Pt denied further questions and was taken out via w/c by TRAVEL MANAGER to POV with Daughter and all belongings.
--- NOTE | 2022-08-27 14:20 | CM.IDA ---
Initial DCP Assessment Note Pt is a 71 yo female, resident of [facility], presents with SOB, hx of CHF, admitted obs for work up and medical management- O2, lasix, echo. discharged back home today after echo, close outpatient f/u recommended PCP: Not Listed Payer: MCR/[employer] Patient discharged this morning, back to [facility] in [place] Received call from Phuong at [facility] P# [phone] F# [phone] who explained patient had been walking w/her walker, attending meals in the dining room and completing ADLs mostly indp. up until recently. Patient has been weaker than usual and has fallen recently. Phuong concerned that if patient cannot stand, [facility] may not be an approp. place upon discharge Asked if [facility] staff has spoken w/reyr Alejandra about increasing patient's care at [facility], Phuong says not yet Ordered PT eval and as this WHOLESALE BUYER went to speak w/ RN and patient re discharge, patient had already been discharged and had left the hospital, after being cleared by therapy Plan: DC home to [facility] via dtkarime Roberts's private transport, close outpatient f/u recommended ARYAN Jacob
--- NOTE | 2022-08-27 17:38 | P.DS_ITS ---
History of Present Illness History of Present Illness Date Patient Seen: 08/26/22 Time Patient Seen: 03:30 Date of Onset of Symptoms: 08/26/22 Chief complaint: Shortness of breath Narrative: Per admitting provider: Penny Minor is a 71-year-old female resident of [facility] with a history of congestive heart failure, coronary artery disease, and diabetes presented today with increased shortness of breath.? She says has been going on for couple of months her doctor recently increased her Lasix from 20 mg to 40 mg but does not feel like it is helping.? She denies fever chills or chest pain.? Feels like she is more short of breath.? EMS arrived she was placed on 4 L of oxygen, her room air sat now is 91%.? She states that today she was walking to the bathroom she was extremely short of breath when she fell and hit her head.??She apparently did not have dinner she was feeling poorly and slept through dinner. At 3:00 a.m. she is in her room eating a sandwich. She does not believe that they limit her salt intake where she lives but she does not add salt to her meals. She is not seen by a provider in the facility, her daughter takes her to her doctor appointments and she believes she last saw Maryjane her primary care provider a month ago. She does endorse having frequent urination which is not new denies any nausea vomiting diarrhea or constipation. She is afebrile, blood pressure 112/61, heart rate 60 respiratory rate 13 oxygen saturation 98% on 2 L she weighs 100 and 20 kg with a BMI of 45. Head CT and chest x-ray are negative for any acute cardiopulmonary or neurological process. She is mildly anemic with a hemoglobin and hematocrit of 10.9 and 33.5, sodium is 136, creatinine 1.73 with a EGFR of 31 BUN is 39, calcium 7.6, her proBNP is 6740 influenza A/B, RSV and COVID PCR are all negative Discharge Providers Provider Date of admission: 08/26/22 01:51 Discharge Date: 08/27/22 Consults: 08/27/22 10:53 Consult to Physical Therapy Evaluate & Treat Comment: Physician Instructions: Evaluate and Treat Discharge provider: Ananda Short MD Summary Hospital Course Discharge Diagnosis: 1. Acute CHF exacerbation, EF 50-55%, acute respiratory failure 2. CKD stage 3 3. CAD 4. Type 2 Diabetes 5. HTN 6. HL Hospital Course: Ms. Minor was admitted to the hospital with shortness of breath and found to be in acute CHF exacerbation. She has known CHF. She was diuresed well, and was able to come off oxygen, which she initially required. She was noted to be on chronic prednisone, documented for CHF, at 5mg daily which may be contributing to her fluid retention. She was prescribed an ARB, beta-caio and torsemide at discharge. She is also recommended to wean off steroids if possible and was discharged with a recommended prednisone taper. She should follow up with her PCP within a week. Exam Vital Signs (past 8 hours): Fraction of Inspired Oxygen 95 Oxygen Delivery Method Nasal Cannula Oxygen Flow Rate 2 Narrative Exam Narrative: Gen: no acute distress Resp: clear bilaterally Abd: soft, non-tender Extremities: Bilateral 1 edema Objective Labs Result Diagrams: 08/26/22 06:12 08/27/22 06:10 Labs: Laboratory Results - last 24 hr 08/27/22 06:10 Sodium 136 L Potassium 4.2 Chloride 102 Carbon Dioxide 26 BUN 43 H Creatinine 1.59 H Estimated GFR 35 L BUN/Creatinine Ratio 27.0 H Glucose 115 H Calcium 8.4 Magnesium 1.7 Total Bilirubin 0.9 AST 17 ALT 18 Alkaline Phosphatase 99 Total Protein 6.4 Albumin 3.6 Globulin 2.8 Albumin/Globulin Ratio 1.3 [facility] Medical History (Updated 08/26/22 @ 03:38 by DEBI Schmidt) Chronic kidney disease (CKD) stage G3b/A3, moderately decreased glomerular filtration rate (GFR) between 30-44 mL/min/1.73 square meter and albuminuria creatinine ratio greater than 300 mg/g Coronary artery disease Diabetes type 2, controlled Dyslipidemia Essential hypertension Surgical History (Updated 08/26/22 @ 03:38 by DEBI Schmidt) History of heart valve replacement Family History (Updated 08/26/22 @ 03:39 by DEBI Schmidt) Father Leukemia Mother Myocardial infarction Social History household members: other Smoking Status: Former smoker alcohol intake: current Discharge Plan Discharge Plan Patient Disposition: Home Provider Discharge Comment: Ms. Minor came in to the hospital with a heart failure exacerbation. She did very well with IV diuretics. Her breathing improved and she was able to be discharged. She should try to wean off steroids as this may be causing fluid retention. I would recommend a taper of the steroids with prednisone 2.5mg for one week and then possibly stop. Follow up with PCP within 3-5 days. Discharge orders & Medications Prescriptions: New donepezil 5 mg Tablet 5 mg PO BEDTIME Qty: 30 0RF losartan 25 mg Tablet 25 mg PO DAILY Qty: 30 0RF metoprolol succinate 25 mg Tablet Extended Release 24 Hr 50 mg PO DAILY Qty: 30 0RF prednisone 2.5 mg tablet 2.5 mg PO DAILY Qty: 7 0RF torsemide 20 mg tablet 20 mg PO DAILY Qty: 30 0RF Continued atorvastatin 40 mg tablet 40 mg PO DAILY citalopram 20 mg tablet 20 mg PO DAILY pregabalin 100 mg capsule 100 mg PO TID trazodone 150 mg tablet 75 mg PO BEDTIME omeprazole 20 mg capsule,delayed release(DR/EC) 20 mg PO DAILY Discontinued prednisone 5 mg tablet 5 mg PO DAILY Diet/Activity/Treatments Diet: Low-sodium Diet comment: 2L fluid restriction daily Visit Report/Discharge Packet Instructions: DI for Heart Failure, Prednisone, Torsemide, Metoprolol, Losartan, Donepezil Discharge Data Attending Provider: Jing Carballo VTE Deep Vein Thrombosis/Pulmonary Embolism Present on Admission: No
== END 2022-08-27 12:00 | disposition home or self-care (01) ==
LOC: ED 08-26 01:44 → AC 08-26 01:51
PROVIDERS: Admitting Provider Nurse Practitioner Family; Emergency Provider Emergency Medicine; Referring Provider Emergency Medicine; Visit Provider Nurse Practitioner Family
DX: J96.00 Acute respiratory failure, unspecified whether with hypoxia or hypercapnia (principal); I13.0 Hypertensive heart and chronic kidney disease with heart failure and stage 1 through stage 4 chronic kidney disease, or unspecified chronic kidney disease; I50.9 Heart failure, unspecified; N18.31 Chronic kidney disease, stage 3a; E11.22 Type 2 diabetes mellitus with diabetic chronic kidney disease; E11.42 Type 2 diabetes mellitus with diabetic polyneuropathy; D64.9 Anemia, unspecified; I25.10 Atherosclerotic heart disease of native coronary artery without angina pectoris; W01.10XA Fall on same level from slipping, tripping and stumbling with subsequent striking against unspecified object, initial encounter; Y92.099 Unspecified place in other non-institutional residence as the place of occurrence of the external cause; Z79.4 Long term (current) use of insulin; Z20.822 Contact with and (suspected) exposure to COVID-19
CPT/HCPCS: 0241U; 36415; 70450; 71045; 80053; 80320; 82550; 82962; 83036; 83690; 83735; 83880; 84484; 85025; 93005; 93010; 93306; 96372; 96374; 97161; 99285; G0378; J1644; J1815; J1940

== ENCOUNTER → 2022-09-29 15:02 | Outpatient (CLI) | payer MEDICARE, SELFPAY ==
[2022-08-26 02:26] VITALS: BMI 45.2
--- NOTE | 2022-09-29 15:04 | DI.ECHO.S_ITS ---
[facility] +---------+ : : [address] [place] : : : : [id number] : : : : Phone: [phone]+ Echocardiogram Report + + :Name: MEHREEN JONES Study Date: 09/29/2022 Height: 64 in : :[facility] ReadingLocation: Weight: 270 lb : : Gender: Female BSA: 2.2 m2 : :: 1950 Age: 71 yrs BP: 141/86 mmHg: :Reason For Study: Congestive Heart Failure : :Ordering Physician: AMINTA, : :JALEESA Performed By: Eren Mina : :Referring: JALEESA LEMOS : + + Interpretation Summary Normal left ventricle size with ejection fraction 50-55%. The interventricular septum is flattened, consistent with a right ventricular pressure/volume condition. The right ventricle is severely dilated. Right ventricular systolic function is moderately reduced. Moderately dilated right atrium. Mild aortic valve sclerosis. 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 The mitral valve mean gradient is 4 mmHg. Mild mitral regurgitation. Moderate to severe tricuspid regurgitation. The right ventricular systolic pressure is estimated to be at least 57 mmHg based on an estimated right atrial pressure of 15 mm Hg. Comparison is made with the echocardiogram of 08/26/2022, RV size has increased. Procedure: A two-dimensional transthoracic echocardiogram with color flow and Doppler was performed. The study quality was technically adequate. Comparison is made with the echocardiogram of 08/26/2022. Left Ventricle: The left ventricle is normal in size and wall thickness. The ejection fraction is estimated to be 50-55%. The interventricular septum is flattened, consistent with a right ventricular pressure/volume condition. Diastolic function could not be accurately assessed due to confounding valvular disease. Right Ventricle: The right ventricle is severely dilated. Right ventricular systolic function is moderately reduced. Atria: The left atrium is not well visualized. The right atrium is moderately dilated. The interatrial septum grossly appears intact with no obvious evidence for an atrial septal defect. 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 The prosthetic mitral valve appears to open well. The mitral valve mean gradient is 4 mmHg. There is mild mitral regurgitation. Aortic Valve: There is mild aortic valve sclerosis. There is trace aortic regurgitation. Tricuspid Valve: The tricuspid valve leaflets are thin and pliable. There is moderate to severe tricuspid regurgitation. The right ventricular systolic pressure is estimated to be at least 57 mmHg based on an estimated right atrial pressure of 15 mm Hg. Pulmonic Valve: The pulmonic valve is not well seen, but is grossly normal. There is moderate pulmonic regurgitation. Great Vessels: The aortic root is normal size. The dimensions of the ascending aorta are normal. The IVC is dilated (diameter is greater than 2.1 cm) and it collapses less than 50% with a sniff. This suggests a high right atrial pressure of 15 mm Hg. Pericardium/ Pleura There is no pericardial effusion. There is no pleural effusion. MMode/2D Measurements & Calculations LVIDd: 4.8 cm LVOT diam: 2.0 cm LVIDs: 3.3 cm Ao root diam: 2.8 cm FS: 31.3 % asc Aorta Diam: 3.4 cm IVSd: 1.1 cm LVPWd: 1.1 cm LV christianson. diameter/BSA (cm/m^2): 2.2 LV sys. diameter/BSA (cm/m^2): 1.5 LA dimension: 4.7 cm RA long axis: 5.8 cm LA A2 area: 26.0 cm2 IVC diam: 2.6 cm LA A4 area: 18.2 cm2 LA length (vol): 6.4 cm LA vol: 63.0 ml LA vol index: 28.3 ml/m2 TAPSE_phl: 0.68 cm Doppler Measurements & Calculations Ao V2 max: 156.0 cm/sec LVOT Max Thaddeus: 121.0 cm/sec Ao V2 mean: 110.0 cm/sec LV V1 max P.9 mmHg Ao max P.0 mmHg LV V1 VTI: 24.8 cm Ao mean P.0 mmHg LEANN(I,D): 2.6 cm2 Ao V2 VTI: 30.4 cm LEANN(V,D): 2.4 cm2 sev ratio: 0.82 LEANN indexed to BSA (cm^2/m^2): 1.2 MVA(VTI): 1.8 cm2 TR max thaddeus: 323.0 cm/sec TR max P.7 mmHg MV V2 mean: 81.3 cm/sec SV(LVOT): 77.9 ml MV mean P.0 mmHg MV V2 VTI: 43.1 cm AV VR_phl: 0.78 LEANN(VTI)/BSA_phl: 1.1 Electronically signed by: Colby Kinsey on Reading Physician:09/29/2022 11:02 PM
== END ==
PROVIDERS: Referring Provider Nurse Practitioner Gerontology; Visit Provider Nurse Practitioner Gerontology
DX: I08.3 Combined rheumatic disorders of mitral, aortic and tricuspid valves (principal); I50.9 Heart failure, unspecified; R60.9 Edema, unspecified
CPT/HCPCS: 93306

== ENCOUNTER → 2022-10-14 09:12 | Outpatient (CLI) | payer MEDICARE, SELFPAY ==
[2022-08-26 02:26] VITALS: BMI 45.2
--- NOTE | 2022-10-14 | DI.NM.S_ITS ---
PROCEDURE: NM PUL VENT AND PERFUSION RADIOPHARMACEUTICAL: 37 mCi Tc-99m DTPA aerosol by inhalation and 10.3 mCi Tc-99m MAA intravenously. INDICATIONS: SHORTNESS OF BREATH TECHNIQUE: Ventilation images were obtained first with Tc-99m DTPA aerosol. Subsequently, perfusion images were acquired after intravenous injection of Tc-99m MAA. Anterior, posterior, IBARRA, TURKMEN, RPO, LPO, left and right lateral views were obtained. COMPARISON: [facility], CR, XR CHEST 2V, 10/14/2022, 10:05. FINDINGS: A mild matched perfusion defect can be seen involving the right lung base, which corresponds well to the pleural effusion/atelectasis seen on the accompanying chest radiograph. No definite mismatched perfusion defects can be seen. IMPRESSION: Low probability of pulmonary embolism. Dictated by: Mikal Cleveland M.D. on 10/14/2022 at 11:37 Approved by: Mikal Cleveland M.D. on 10/14/2022 at 11:38
--- NOTE | 2022-10-14 | DI.RAD.S_ITS ---
PROCEDURE: XR CHEST 2V INDICATIONS: HAD NUC MED STUDY TECHNIQUE: 2 views of the chest were acquired. COMPARISON: [facility], CR, XR CHEST 1 VIEW, 07/05/2020, 20:11. [facility], CR, XR CHEST 1V, 08/25/2022, 23:10. FINDINGS: Surgical changes and devices: Patient is status post median sternotomy and valvular replacement. Dual lead cardiac pacer is unchanged. Lungs and pleura: Pleural effusion or pleural thickening and scar is redemonstrated at the right lung base unchanged from the study dated August 25, 2022. Right basilar pulmonary radiopacities are unchanged. The left lung is clear. Mediastinum: Mediastinal contours are normal. Heart size is enlarged, as before. Bones and chest wall: No suspicious bony abnormalities. Soft tissues appear unremarkable. IMPRESSION: 1. Right pleural effusion versus pleural thickening and right basilar airspace opacities or pulmonary scarring. Dictated by: Anitra Martini M.D. on 10/14/2022 at 12:34 Approved by: Anitra Martini M.D. on 10/14/2022 at 12:36
== END ==
PROVIDERS: Referring Provider Nurse Practitioner Gerontology; Visit Provider Nurse Practitioner Gerontology
DX: R05.9 Cough, unspecified (principal); R06.2 Wheezing; R06.02 Shortness of breath; I50.22 Chronic systolic (congestive) heart failure; I51.7 Cardiomegaly; Z95.0 Presence of cardiac pacemaker
CPT/HCPCS: 71046; 78582; A9539; A9540

== ENCOUNTER → 2022-10-20 09:55 | Outpatient (CLI) | payer MEDICARE, SELFPAY ==
[2022-08-26 02:26] VITALS: BMI 45.2
--- NOTE | 2022-10-20 09:57 | DI.CT.S_ITS ---
PROCEDURE: CT CHEST WO CON INDICATIONS: SOB/ABNORMAL VQ SCAN TECHNIQUE: Noncontrast 5 mm thick sections acquired from the pulmonary apices to the posterior costophrenic angles. 1 mm lung window, 5 mm thick coronal and sagittal and 7 mm axial MIP reformats were then acquired. For radiation dose reduction, the following was used: automated exposure control, adjustment of mA and/or kV according to patient size. COMPARISON: [facility], CR, XR CHEST 2V, 10/14/2022, 10:05. [facility], [place], [place] PUL VENT AND PERFUSION, 10/14/2022, 9:32. FINDINGS: Image quality: Slightly motion degraded Lungs and pleura: Left lung is relatively clear. Scattered areas of scarring and atelectasis are present. At the right lung base, there is a dense area of consolidation and underlying pleural thickening, possibly with a tiny effusion. Tiny pulmonary nodules are best seen on maximum intensity projection images, many of which probably represent calcified granulomas. Mediastinum, heart, and esophagus: Nonspecific mild distal esophageal wall thickening. Cardiomegaly. Left atrial appendage occluder device. Coronary artery calcifications and valvular annular calcifications. Left chest wall pulse generator with electrode leads in place. There is a mildly enlarged lymph node adjacent to the right upper esophagus measuring 1.1 cm. Axial image 15. There is also a borderline enlarged right infrahilar node (axial image 33) measuring 0.9 cm. Chest wall and thyroid: Body wall edema, particularly in the upper abdominal region. Upper abdomen: Small ascites. Overall abdominal structures not well evaluated on this noncontrast images. Bones: Scattered degenerative changes. Sternotomy wires. Probably old rib fractures on the right. IMPRESSION: Right lung base opacity possibly representing a combination of atelectasis (possibly round atelectasis) and infectious or inflammatory airspace disease. In addition, there is underlying right pleural thickening, possible trace effusion. Borderline enlarged mediastinal nodes (axial image 15, 33). Consider follow-up imaging in about 3 months. Other findings as above. Partially visualized ascites and body wall anasarca. Dictated by: Holger Meredith M.D. on 10/21/2022 at 10:57 Approved by: Holger Meredith M.D. on 10/21/2022 at 11:06
== END ==
PROVIDERS: Referring Provider Nurse Practitioner Gerontology; Visit Provider Nurse Practitioner Gerontology
DX: R06.02 Shortness of breath (principal); R91.8 Other nonspecific abnormal finding of lung field; J44.9 Chronic obstructive pulmonary disease, unspecified; I50.9 Heart failure, unspecified; I51.7 Cardiomegaly; R18.8 Other ascites; R59.0 Localized enlarged lymph nodes
CPT/HCPCS: 71250